=== PATIENT | female | born 1970 | race Caucasian/White ===

== ENCOUNTER 2020-04-25 15:58 | Outpatient (CLI) | payer BC | END 2020-04-25 15:59 | disposition home or self-care (01) | LOC: CTENTCT 15:58 | PROVIDERS: ATTEND Otolaryngology Plastic Surgery within the Head & Neck | DX: J32.9 Chronic sinusitis, unspecified (principal) | CPT/HCPCS: 70486 ==

== ENCOUNTER 2020-05-29 07:09 | Day surgery (SDC) | payer BC ==
[2020-05-28 10:42] VITALS: BMI 25.4
[2020-05-29] MEDS ORDERED: AFRIN NASAL MIST 15 ML BOT ONE ×2 (08:19→08:42)
[2020-05-29] MEDS ORDERED: Lidocaine 1% w/Epinephrine 1:100K 20 ML VIAL ONE (08:41)
[2020-05-29] MEDS ORDERED: Bacitracin Zinc Ointment 30 gm TUBE ONE (08:42)
[2020-05-29] MEDS ORDERED: Midazolam HCl 2 mg/2 ml Vial ONE (09:25)
[2020-05-29] MEDS ORDERED: Fentanyl 100 MCG/2 ML VIAL ONE ×2 (09:25→11:00)
[2020-05-29] MEDS ORDERED: Glycopyrrolate 0.2 MG/ML 5 ML SYRINGE ONE (09:27)
[2020-05-29] MEDS ORDERED: Rocuronium Bromide 10 MG/ML (10ML VIAL) ONE (09:27)
[2020-05-29] MEDS ORDERED: PROPOFOL 200 MG/20 ML VIAL ONE (09:27)
[2020-05-29] MEDS ORDERED: PHENYLEPHRINE-NS 100 MCG/ML 10 ML SYRINGE ONE (09:27)
[2020-05-29] MEDS ORDERED: Dexamethasone 20 MG/5 ML VIAL ONE (09:27)
[2020-05-29] MEDS ORDERED: Lidocaine 1% PF 5 ML VIAL ONE (09:27)
[2020-05-29] MEDS ORDERED: Ondansetron PF 4 MG/2 ML Vial ONE (09:27)
[2020-05-29] MEDS ORDERED: Morphine 4 MG/ML VIAL ONE (11:15)
[2020-05-29] MEDS ORDERED: Promethazine HCl 25 MG/ML VIAL ONE (13:04)
--- NOTE | 2020-05-30 08:14 | OP ---
DATE OF PROCEDURE: 05/29/2020 PREOPERATIVE DIAGNOSES: 1. Chronic rhinosinusitis. 2. Nasal polyposis. 3. Allergic fungal sinusitis. 4. Nasal septal deviation. 5. Bilateral inferior turbinate hypertrophy. 6. Nasal obstruction. POSTOPERATIVE DIAGNOSES: 1. Chronic rhinosinusitis. 2. Nasal polyposis. 3. Allergic fungal sinusitis. 4. Nasal septal deviation. 5. Bilateral inferior turbinate hypertrophy. 6. Nasal obstruction. PROCEDURES PERFORMED: 1. Bilateral endoscopic sinus surgery, total ethmoidectomies. 2. Bilateral endoscopic sinus surgery, maxillary antrostomies. 3. Bilateral endoscopic sinus surgery, sphenoidotomies. 4. Bilateral endoscopic sinus surgery, frontal sinus exploration. 5. Nasoseptoplasty. 6. Bilateral inferior turbinate submucosal resection. 7. [employer] stereotactic image-guided sinus surgery. ESTIMATED BLOOD LOSS: 20 mL. COMPLICATIONS: None. ANESTHESIA: GETA. PROCEDURE IN DETAIL: Patient was taken to the operating room and placed supine on the table. General endotracheal anesthesia was obtained by the anesthesia staff. Then 1% lidocaine with 1:100,000 epinephrine was injected into the nasal septum as well as the inferior turbinates. The patient was prepped and draped in standard surgical fashion. The Afrin pledgets were then removed. A Jessee incision was made on the left nasal septum. Submucoperichondrial dissection was performed bilaterally of the deviated portions of the septum, which included the maxillary crest and the crest deviation, as well as the mid portion of the septum. Cartilage and bony deviation was removed, leaving a generous caudal and dorsal strut. Any straight pieces of cartilage were then placed within the cartilage press, pressed, straightened, and then placed between the mucoperichondrial flaps, which were then closed using a 4-0 gut stitch. The inferior turbinates were then punctured with the submucosal Coblation machine, and 3 separate coblations were delivered to the anterior inferior portion of the inferior turbinates. Following this, the nasal cavity was irrigated. All debris was removed. An orogastric tube was placed. Gastric contents and Odonnell splints were then placed in the nasal cavity and sutured with a 3-0 silk stitch. Following this, the [employer] image-guided system was setup, calibrated, and was noted to be within 1 mm of accuracy. Following this, the 0-degree microdebrider was then advanced into the nasal cavity with the 0-degree endoscope. The middle turbinates were then gently medialized using the Bluford elevator. The patient had a displaced uncinate process bilaterally secondary to large Geraldo cells and periorbital cells. The uncinate process was then anteriorly fractured using a ball-ended probe bilaterally and was removed using the 0-degree and 40-degree microdebrider blade bilaterally. These large Geraldo cells were also removed using the 0-degree and 40-degree microdebrider blade under stereotactic guidance bilaterally. Following this, the natural maxillary sinus ostia was identified with a ball-ended probe and was gently widened using a 40-degree microdebrider bilaterally. Following this, the ethmoidal bulla was identified bilaterally and was punctured on its medial and inferior aspect using the microdebrider bilaterally. Upon entrance into the right anterior ethmoidal cells adjacent to the right medial orbital wall was noticed to have an impaction of allergic fungal mucin and debris. This allergic debris was then removed using 0-degree microdebrider and straight suction. Following this, the grand lamella was identified and was punctured with the 0-degree microdebrider into the posterior ethmoidal cells. Working from posterior to anterior, the ethmoidal cells were opened under stereotactic guidance and protecting the cribriform plate bilaterally. Following this, the anterior wall of the sphenoid sinus was identified and a sphenoidotomy was created anteriorly using the 0-degree microdebrider under stereotactic guidance. The sphenoidotomy was then widened in a medial and inferior direction bilaterally. Following this, a 45-degree endoscope along with a 40-degree microdebrider blade was used to further identify and open the frontal sinus ostia bilaterally. The frontal sinus ostia was widened using the 40-degree microdebrider blade bilaterally. Following this, the nasal cavity was irrigated and NasoPore packing was placed within the middle meatus bilaterally. Odonnell splints were then placed and secured. The [employer] posterior stereotactic-guided system was then turned off. The patient tolerated the procedure well. Job ID: [id number]
--- NOTE | 2020-05-30 20:58 | EKG ---
Test Reason : PREOP Blood Pressure : / mmHG Vent. Rate : 052 BPM Atrial Rate : 052 BPM P-R Int : 162 ms QRS Dur : 088 ms QT Int : 436 ms P-R-T Axes : 048 -21 037 degrees QTc Int : 405 ms Sinus bradycardia Otherwise normal ECG No previous ECGs available Confirmed by Elissa WING ([id number]) on 05/30/2020 8:57:54 PM Referred By: RICHARD Confirmed By:Elissa WING
== END 2020-05-29 14:55 | disposition home or self-care (01) ==
LOC: SDC 07:09
PROVIDERS: ATTEND Otolaryngology Plastic Surgery within the Head & Neck
PROC: 09BT8ZZ Excision of Left Frontal Sinus, Via Natural or Artificial Opening Endoscopic (ICD-10-PCS; principal; 2020-05-29)
PROC: 09BL8ZZ Excision of Nasal Turbinate, Via Natural or Artificial Opening Endoscopic (ICD-10-PCS; principal; 2020-05-29)
PROC: 09SM4ZZ Reposition Nasal Septum, Percutaneous Endoscopic Approach (ICD-10-PCS; principal; 2020-05-29)
PROC: 8E09XBZ Computer Assisted Procedure of Head and Neck Region (ICD-10-PCS; principal; 2020-05-29)
PROC: 099S8ZZ Drainage of Right Frontal Sinus, Via Natural or Artificial Opening Endoscopic (ICD-10-PCS; principal; 2020-05-29)
PROC: 099R8ZZ Drainage of Left Maxillary Sinus, Via Natural or Artificial Opening Endoscopic (ICD-10-PCS; principal; 2020-05-29)
PROC: 09BV8ZZ Excision of Left Ethmoid Sinus, Via Natural or Artificial Opening Endoscopic (ICD-10-PCS; principal; 2020-05-29)
PROC: 09BU8ZZ Excision of Right Ethmoid Sinus, Via Natural or Artificial Opening Endoscopic (ICD-10-PCS; principal; 2020-05-29)
PROC: 09CX8ZZ Extirpation of Matter from Left Sphenoid Sinus, Via Natural or Artificial Opening Endoscopic (ICD-10-PCS; principal; 2020-05-29)
PROC: 09CW8ZZ Extirpation of Matter from Right Sphenoid Sinus, Via Natural or Artificial Opening Endoscopic (ICD-10-PCS; principal; 2020-05-29)
PROC: 09BS8ZZ Excision of Right Frontal Sinus, Via Natural or Artificial Opening Endoscopic (ICD-10-PCS; principal; 2020-05-29)
DX: J32.2 Chronic ethmoidal sinusitis (principal); J34.2 Deviated nasal septum; J34.3 Hypertrophy of nasal turbinates; J30.9 Allergic rhinitis, unspecified; J33.9 Nasal polyp, unspecified; J34.89 Other specified disorders of nose and nasal sinuses; Z88.0 Allergy status to penicillin; Z88.2 Allergy status to sulfonamides; Z79.899 Other long term (current) drug therapy; Z79.51 Long term (current) use of inhaled steroids
CPT/HCPCS: 36415; 85014; 93005; 93010; J1100; J2250; J2270; J2405; J2550; J2704; J3010